=== PATIENT | female | born 1990 | race Caucasian/White ===

== ENCOUNTER → 2017-05-01 | Outpatient (CLI) | payer BC | LOC: RAD 09:09 | DX: R22.2 Localized swelling, mass and lump, trunk (principal) ==

== ENCOUNTER → 2018-01-11 | Outpatient (CLI) | payer BC ==
[~2018-01-11] VITALS: Ht 167.6 cm; Wt 72.7 kg
[2018-01-11 17:36] VITALS: BP 165/105
[2018-01-11 18:00] VITALS: BP 157/87
== END ==
LOC: AMSURD 16:51
DX: R09.89 Other specified symptoms and signs involving the circulatory and respiratory systems (principal)
CPT/HCPCS: J1200; J2405; J2930

== ENCOUNTER → 2018-03-30 | Outpatient (CLI) | payer BC ==
[2018-01-11 18:00] VITALS: BP 157/87
[2018-03-30 09:12] LABS: EOS % 0.6 % (1.0-5.0); HEMATOCRIT 39.3 % (37.0-47.0); HEMOGLOBIN 12.7 g/dL (12.5-16.0); MEAN CELL VOLUME 94 fl (78-100); MEAN CORPUSCULAR HEMOGLOBIN 31 pg (27-31); MEAN CORPUSCULAR HGB CONC 32 g/dL (33-37); MEAN PLATELET VOLUME 9.5 fl (7.4-10.4); MONO # 0.4 (0.20-0.80); NEU # 4.2 (1.40-6.50); PLATELET COUNT 341 K/mm3 (130-400); RED BLOOD COUNT 4.17 M/mm3 (4.10-5.30); RED CELL DISTRIBUTION WIDTH 12.5 % (11.5-14.5); WHITE BLOOD COUNT 6.7 K/mm3 (4.8-10.8)
[2018-03-30 09:31] LABS: TOTAL BILIRUBIN 0.6 mg/dL (0.2-1.3); TOTAL PROTEIN 7.2 g/dL (6.3-8.2)
[2018-03-30 10:11] LABS: POTASSIUM 3.9 mmol/L (3.6-5.0)
== END ==
LOC: LAB 08:58
PROVIDERS: Family Medicine
DX: Z01.419 Encounter for gynecological examination (general) (routine) without abnormal findings (principal)

== ENCOUNTER → 2019-02-13 | Outpatient (CLI) | payer BC ==
[2018-01-11 18:00] VITALS: BP 157/87
[2019-02-13 09:01] LABS: POTASSIUM 3.8 mmol/L (3.5-5.1)
[2019-02-13 09:03] LABS: CALCIUM 9.4 mg/dL (8.3-10.5)
[2019-02-13 09:06] LABS: TOTAL BILIRUBIN 0.5 mg/dL (0.2-1.2)
[2019-02-13 09:16] LABS: EOS # 0.1 (0.04-0.40); EOS % 1.1 % (1.0-5.0); HEMATOCRIT 40.1 % (37.0-47.0); HEMOGLOBIN 12.7 g/dL (12.5-16.0); LYMPH# 1.7 (1.50-4.00); MEAN CELL VOLUME 94 fl (78-100); MEAN CORPUSCULAR HEMOGLOBIN 30 pg (27-31); MEAN CORPUSCULAR HGB CONC 32 g/dL (33-37); MONO # 0.4 (0.20-0.80); NEU # 3.3 (1.40-6.50); PLATELET COUNT 355 K/mm3 (130-400); RED BLOOD COUNT 4.27 M/mm3 (4.10-5.30); RED CELL DISTRIBUTION WIDTH 12.7 % (11.5-14.5); WHITE BLOOD COUNT 5.5 K/mm3 (4.8-10.8)
== END ==
LOC: LAB 08:33
PROVIDERS: Family Medicine
DX: Z01.419 Encounter for gynecological examination (general) (routine) without abnormal findings (principal); E78.5 Hyperlipidemia, unspecified